=== PATIENT | male | born 1965 | race Caucasian/White ===

== ENCOUNTER 2024-10-02 07:13 | Emergency (ER) | payer BC, SELFPAY ==
[2024-10-02 07:15] VITALS: BP 142/90
--- NOTE | 2024-10-02 07:25 | ED.GENMED ---
History of Present Illness
General
Chief Complaint: Allergic Reaction
Source: patient
Exam Limitations: none
Time Seen by Provider: 10/02/24 07:19
History of Present Illness
History of Present Illness:
58yo left hand dominant male with a history of hyperlipidemia presenting for evaluation of left hand swelling. Patient was stung 3 times by a bee yesterday morning. One of the stings was located on his left hand. He woke up this morning with
diffuse swelling of his left hand. He took Benadryl without much relief. He has never had this much swelling from a bee sting before and wanted to get checked out. He also complains of itching. He denies any shortness of breath, dysphagia,
vomiting, diarrhea, fevers.
Past History
Past History
ED Past Medical History: None
ED Past Surgical History: None
Social History
Tobacco: Non-smoker
Alcohol: None
Drug: None
Living: with family
Phy Exam
General Physical Exam
General Presentation: well appearing and no apparent distress
General Skin: warm and dry
General Habitus: normal
General Mental: alert
ENT Exam
ENT Exam: normocephalic and other (No oropharyngeal swelling. Normal phonation.)
Pulmonary Exam
Pulmonary Exam: lungs clear, no respiratory distress, no rales, no crackles, no rhonchi and no wheezing
Neurological Exam
Neurological Exam: alert
Maury Coma Scale
Eye Opening: Spontaneous
Verbal Response: Oriented
Motor Response: Obeys Commands
GCS Total Score: 15
Skin Exam
Skin Exam: other (L hand: Moderate amount of swelling noted to the dorsum of the hand consistent with a localized reaction. No erythema or signs of cellulitis. 2+ radial pulse.)
Psychiatric Exam
Psychiatric Exam: normal mood/affect
Course
Orders/Labs/Results
Orders:
Orders
10/02/24 07:27
Prednisone [Deltasone] 50 mg PO NOW STA
Vital Signs
Initial and Last Documented VS:
Initial Vital Signs
Temp Pulse Resp BP Pulse Ox
98.0 F 64 18 142/90 96
10/02/24 07:15 10/02/24 07:15 10/02/24 07:15 10/02/24 07:15 10/02/24 07:15
Last Documented Vital Signs
Temp Pulse Resp BP Pulse Ox
98.0 F 64 18 142/90 98
10/02/24 07:15 10/02/24 07:15 10/02/24 07:15 10/02/24 07:15 10/02/24 07:54
MDM/Problems Addressed
Differential Diagnosis Includes:
58yoM here with L hand swelling and itching after a bee sting yesterday. VSS. He is well appearing in no distress. There is a moderate amount of swelling to the dorsum of the hand consistent with a localized reaction. No evidence of cellulitis or
lymphangitis noted. He was started on a course of prednisone. Supportive care discussed and ED return precautions reviewed. He was discharged in stable condition.
*Pulse Oximetry
SaO2: 96
Oxygen Mode of Delivery: Room air
Patient hypoxic: no (96%)
*Critical Care Note
Total Time (30-74mins, 75-104mins- exclusive of procedures): Not Applicable
ED Attending Note
-
Portions of this chart may have been created with voice recognition software.� Occasional wrong word or��sound alike� substitutions may have occurred due to the inherent limitations of voice recognition software.
Discharge Plan
Departure
Patient Disposition: Home (Routine Discharge)
Date of Disposition: 10/02/24
Time of Disposition: 07:27
Patient with high blood pressure during this ER visit?: Yes
Discharge Problem:
Local reaction to bee sting
Instructions: Insect bites and stings - ED discharge instructions
Prescriptions:
New
prednisone 50 mg tablet
50 mg PO DAILY Qty: 4 0RF
No Action
No Current Medications
sulfamethoxazole-trimethoprim 1 TABLET tablet
1 tab PO BID Qty: 20 0RF
cephalexin 500 MG capsule
500 mg PO QID Qty: 40 0RF
Activity Restrictions/Additional Instructions:
Take prednisone as prescribed. Take Benadryl 25mg every 6 hours as needed. Apply ice and compress hand to help with swelling.
Please follow-up with your family doctor. Return to the ER with any worsening symptoms, spreading redness, fevers.
Interventions
Interventions:
*Risk Screen - Suicide Last Done: 10/02/24 07:15
*General Assessment Last Done: 10/02/24 07:15
*Neglect/Abuse Screening Last Done: 10/02/24 07:54
*ED- Fall Risk Assessment Last Done: 10/02/24 07:54
*ED COVID-19 Vaccine History Last Done: 10/02/24 07:54
*Nursing Disposition Last Done: 10/02/24 07:56
ED- Cardiac Assessment Last Done: 10/02/24 07:54
ED- Pulmonary Assessment Last Done: 10/02/24 07:54
ED-Skin Assessment Last Done: 10/02/24 07:54
Discharge Date and Time
Discharge Date/Time: 10/02/24 07:50
Print Language: CANADIAN
[2024-10-02] MEDS: DELTASONE 50 MG PO (07:43)
== END 2024-10-02 07:50 | disposition home or self-care (01) ==
LOC: EMR 07:13
PROVIDERS: EMERGENCY PHYSICIAN Emergency Medicine; FAMILY PHYSICIAN Family Medicine
DX: T63.441A Toxic effect of venom of bees, accidental (unintentional), initial encounter (principal); M79.89 Other specified soft tissue disorders; E78.5 Hyperlipidemia, unspecified
CPT/HCPCS: 99283

== ENCOUNTER → 2025-01-20 15:57 | Outpatient (REF) | payer BC, SELFPAY | LOC: PAVMRI 15:57 | PROVIDERS: ATTENDING PHYSICIAN Family Medicine | DX: M54.16 Radiculopathy, lumbar region (principal) | CPT/HCPCS: 72148 ==